=== PATIENT | male | born 1945 | race Caucasian/White ===

== ENCOUNTER 2016-08-04 08:26 | Inpatient (IN) ==
[2016-08-04] MEDS ORDERED: Heparin 1,000 UNITS/500 mL NS 0 ML ONE (08:29)
[2016-08-04] MEDS ORDERED: Vancomycin 1,000 MG in D5% in Water 250 ML IVPB ONE ×2 (09:05→21:00)
[2016-08-04] MEDS ORDERED: Albuterol 2.5 MG/3 ML NEBULIZER IH ONE (09:05)
[2016-08-04] MEDS ORDERED: CeFAZolin Pre 2,000 MG/100 ML 2,000 MG/100 ML BAG IVPB ONE (09:05)
[2016-08-04] MEDS: Ringers Solution, Lactated 1,000 ML IVC SCH ×2 (09:26→14:05)
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
--- NOTE | 2016-08-04 09:40 | History & Physical Report ---
Date of Encounter: 08/04/16 Time of Encounter: 09:25 24 Hour HP Update - Instructions Instructions: If the History and Physical is less than 30 days old and was completed prior to A.M. admission and or procedure and has NOT been updated on calendar day of procedure please complete this update prior to performing procedure. - Update Patient reports changes in Medical Condition: No Changes in assessment/condition: No Changes in Medication: No Preop tests/diagnostics Reviewed: Yes Surgery Remains Indicated: Yes Consent for Planned Operative Procedure(s) Verified: Yes - Pre-Operative Checklist Preoperative Checklist Indicated: Yes Prophylactic Antibiotic Ordered: Yes (Vancomycin due to MRSA risk) Home Medications Include Beta Wiley: No Beta Wiley Taken Today (Day of Surgery): No Beta Wiley Taken Yesterday (Day Prior to Surgery): No Is VTE Prophylaxis Indicated?: Yes
[2016-08-04] MEDS ORDERED: *HR* Midazolam HCl 2 MG/2 ML VIAL ONE (10:11)
[2016-08-04] MEDS ORDERED: Lidocaine -MPF 2% 2 ML VIAL ONE ×2 (10:11→10:16)
[2016-08-04] MEDS ORDERED: *HR* Heparin 5,000 UNIT/ML VIAL ONE (10:16)
[2016-08-04] MEDS ORDERED: *HR* Phenylephrine 10 MG/ML VIAL ONE (10:16)
[2016-08-04] MEDS ORDERED: Lidocaine -MPF 4% 5 ML AMPUL ONE (10:16)
[2016-08-04] MEDS ORDERED: *HR* Succinylcholine 200 MG/10 ML VIAL IVP ONE (10:16)
[2016-08-04] MEDS ORDERED: Water for inj. (sterile) 10 ML IV ONE (10:16)
[2016-08-04] MEDS ORDERED: *HR* Rocuronium Bromide 50 MG/5 ML VIAL ONE (10:16)
[2016-08-04] MEDS ORDERED: *HR* Remifentanil 1 MG VIAL IVP ONE ×2 (10:17)
[2016-08-04] MEDS ORDERED: NiCARdipine 2.5 MG/10 ML Syringe IVPB ONE (10:21)
[2016-08-04] MEDS ORDERED: *HR* FentaNYL (PF) 100 MCG/2 ML VIAL ONE ×3 (10:26→13:11)
--- NOTE | 2016-08-04 10:30 | Anesthesia Procedures ---
Date of Encounter: 08/04/16 Time of Encounter: 10:29 Procedures: Anesthesia - Arterial Line Consent obtained: verbal consent Time out performed: Yes Sedation: Versed (mg): 2 Local Anesthetic: Lidocaine 1% Amount of Anesthetic used (mls): 1 Size (Gauge): 20 Length (inches): 1 3/4 Technique Used: sterile prep, guide wire technique, direct puncture technique Post-Procedure: line taped into place Patient tolerated procedure: well Complications: none Site: Radial L Vitals: see rn note
[2016-08-04] MEDS ORDERED: Vancomycin 1,000 MG VIAL ONE (10:33)
[2016-08-04] MEDS ORDERED: Bupivacaine-MPF 0.25% 10 ML VIAL ONE (10:33)
[2016-08-04] MEDS ORDERED: Heparin 1,000 UNITS/500 mL NS 1,000 ML ONE (10:33)
[2016-08-04] MEDS ORDERED: Esmolol 100 MG/10 ML VIAL IVP ONE (11:01)
[2016-08-04] MEDS ORDERED: Neostigmine Methylsulfate 3 MG/3 ML SYRINGE ONE (13:11)
--- NOTE | 2016-08-04 13:41 | Operative Note ---
Date of procedure: 08/04/16 Pre-op diagnosis: 80-99% Right internal carotid artery stenosis Post-op diagnosis: same Procedure: Right carotid endartectomy with hemashield patch angioplasty. Complications: None Anesthesia: JOSE RAMONA Surgeon: Mat Bach Estimated blood loss (cc): 100 Specimen: Right carotid plaque Condition: stable Disposition: PACU Procedure in Detail: Indications: The patient is a 70 year old male with a history of hyperlipidemia who was found to have an 80-99% right internal carotid artery stenosis. A right carotid endarterectomy was recommended to reduce his risk of stroke. Procedure: The patient was identified in the preoperative area. The risks, benefits, and alternatives of the procedure were discussed and all questions were answered. The patient was then taken to the operating room and placed in supine position on the operating table. After induction of general endotracheal anesthesia, the patient was cleaned and draped in normal sterile fashion. A longitudinal incision was made anterior to the right sternocleidomastoid muscle. Hemostasis was obtained via electrocautery. Through a process of blunt , sharp, and electrocautery dissection, the platysma was traversed. The jugular vein was identified. The facial vein was clamped, divided, tied off with a 2-0 silk suture ligature. The jugular vein was retracted, exposing the carotid bifurcation. Patient received 2000 units of heparin intravenously at this time. Proximal dissection of the common and external carotid arteries were performed circumferentially. Dissection of the internal carotid was performed circumferentially. Vessels loops were passed around the internal and external carotid and an umbilical tape was passed from the common carotid artery. The patient received additional 3000 units of heparin intravenously. After waiting adequate time for it to circulate, the vessels were occluded and a longitudinal arteriotomy was made into the common carotid artery extending into the internal carotid beyond the plaque. Upon release of the internal carotid artery loop, vigorous pulsatile retrograde flow was noted. The backpressure was noted to be adequate, therefore no shunt was placed.. A dental freer was used to perform a standard endarterectomy. Proximal and distal endpoints were inspected and no elevated flaps were noted. Additional heparin was given throughout the procedure to maintain adequate anticoagulation. A Hemashield patch was cut to fit the defect and sutured in place with running 6 -0 Prolene. Prior to completing the closure, each vessel was flushed and then reoccluded. Heparinized saline was infused into the lumen. The patch was completed. Flow was restored in the external carotid artery, followed the common carotid artery, lastly the internal carotid artery was opened. A low resistance arterialized signal was present within the internal carotid artery beyond the patch. Thrombin and Gelfoam were used to aid in hemostasis. Meticulous hemostasis was obtained throughout the wound with electrocautery. Platelet rich and platelet poor plasma were infused into the wounds. The sternocleidomastoid was reapproximated with interrupted 3-0 Vicryl. Platelet rich and platelet poor plasma were infused into the wound. A TLS drain was brought through a separate stab incision and sutured in place with 0 silk suture. The platysma was reapproximated with running 3-0 Vicryl. Local anesthetic was infused in the skin. A 3-0 Monocryl was used to reapproximate the skin. Sterile dressing was applied. The patient was extubated, taken to the recovery room in stable condition.
[2016-08-04] MEDS ORDERED: *HR* HYDROmorphone (PF) 1 MG/ML SYRINGE IVP PRN (13:44)
[2016-08-04] MEDS ORDERED: *HR* Labetalol 100 MG/20 ML MDV IVP PRN (13:44)
[2016-08-04] MEDS ORDERED: Ondansetron 4 MG/2 ML VIAL IVP ONE (13:44)
--- NOTE | 2016-08-04 13:44 | Discharge Summary ---
Date of Encounter: 08/05/16 Time of Encounter: 08:10 - Discharge Diagnosis (1) Carotid stenosis, bilateral Priority: Primary Status: Chronic Comments: The patient is postoperative day #1 after right carotid endarterectomy. He denies pain. He is alert and comfortable without any neurologic deficits. He has no hematoma and his incisionis healing. He will be discharged today. (2) Mixed hyperlipidemia Priority: Secondary Status: Chronic Comments: The patient was counseled regarding atherosclerotic risk factor reduction. - Discharge Medications Prescriptions: HYDROcodone/Acet 5/325 mg [[place] 5-325 mg] 1 tab PO Q4H PRN #20 tablet PRN Reason: postoperative pain Home Medications: Aspirin Enteric Coated [Aspirin EC] 81 mg PO DAILY 08/04/16 [History] Atorvastatin Calcium [Lipitor] 20 mg PO HS 08/04/16 [History] HYDROcodone/Acet 5/325 mg [[place] 5-325 mg] 1 tab PO Q4H PRN #20 tablet 08/05/16 [Rx] Allergies/Adverse Reactions: Allergies acetaminophen [From Tylenol-Codeine] Adverse Reaction (Verified 08/04/16 21:55) Vomiting ciprofloxacin [From Cipro] Adverse Reaction (Verified 08/04/16 09:07) Rash codeine [From Tylenol-Codeine] Adverse Reaction (Verified 08/04/16 21:55) Vomiting Primary care physician: Gavin Tellez MD Procedure(s) Performed: Right carotid endarterectomy Discharging clinician: Mat Bach Anticipated date of discharge: 08/05/16 - Patient Status Disposition: Home, Self-Care Condition: Good Functional capacity at discharge: independent ambulation Overall status at discharge: patient is back to baseline - Discharge Instructions Follow Up With: Mat Bach MD [Partnered Physician] - 09/13/16 2:40 pm Gavin Tellez MD [Primary Care Provider] - () Barbie Leone CNP [Advanced Practice Nurse] - 08/10/16 10:00 am Additional Instructions: MAY REMOVE BANDAGE AND SHOWER ON 08/06/2016. WASH GENTLY PAT WOUND GENTLY TO DRY. APPLY DRY BANDAGE NEEDED. NO DRIVING UNTIL 08/11/16. CALL [phone] WITH QUESTIONS OR CONCERNS. - Diet and Activity Activity: increase activity as tolerated Diet: low fat, low cholesterol - Hospital Course Hospital course: Mr. Arechiga is a 70 year old male with a history of hyperlipidemai and carotid stenosis who was admitted on 08/04/16. He underwent a right carotid endarterectomy. He tolerated the procedure well. On postoperative day #1 he was alert and without complaints. He was neurologically intact. He was discharged on postoperative day #1 without complications. - Time Spent with Patient Total time spent providing and/or coordinating discharge services: Exam Vital Signs, Last 4 Hours Pulse Resp BP Pulse Ox 08/04/16 10:02 70 16 167/69 97 General: Present: Conversant, No Apparent Distress HEENT: Present: Pupils equal Neck: Present: Other (incision clean, dry and intact without erythema or drainage). Absent: Tracheal deviation Cardiac: Present: Reg Rate and Rhythm, Normal S1 and S2 Lungs: Present: Normal Breath Sounds, No Wheeze, Rales, Rhonchi Neuro: Present: Alert and responsive, No focal deficits noted, Motor nerves grossly intact, Sensory nerves grossly intact Abdomen: Present: Soft Vascular: Present: Normal capillary refill. Absent: Cyanosis, Edema Skin: Present: No rashes noted on visualized skin
[2016-08-04] MEDS: *HR* Morphine 2 MG/ML SYRINGE IVP PRN ×3 (14:02→15:16)
--- NOTE | 2016-08-04 14:18 | Anesthesia Evaluation Post Op ---
Date of Encounter: 08/04/16 Time of Encounter: 14:15 - Vital Signs Vital Signs: Vital Signs/O2 Sat, Most Current Temp Pulse Resp BP Pulse Ox 98.5 F 70 16 167/69 97 08/04/16 08:56 08/04/16 10:02 08/04/16 10:02 08/04/16 10:02 08/04/16 10:02 - Lungs Lungs: Clear Ascult./Percussion - Airway Airway: Non-obstructed - Cardiovascular Regular Rate - Mental Status Mental Status: Alert & Oriented, Answers Appropriately - Pain Pain Scale: 1 Pain Scale used: Numeric (1 - 10) - Nausea Vomiting Nausea Vomiting: Not Present - Hydration Hydration: NPO, Burt catheter - Discharge PostOp Status: Transfer Patient to floor
[2016-08-04] MEDS ORDERED: *HR* Metoprolol 5 MG/5 ML VIAL IVP ONE ×2 (14:45→14:48)
--- NOTE | 2016-08-04 14:45 | Anesthesia Evaluation Post Op ---
Date of Encounter: 08/04/16 Time of Encounter: 14:45 - Vital Signs Vital Signs: Vital Signs/O2 Sat/Glucose, Most Current Temp Pulse Resp BP Pulse Ox 08/04/16 14:36 97.8 F 80 16 177/78 99 08/04/16 14:26 80 16 162/74 99 08/04/16 14:16 69 16 182/87 99 08/04/16 14:06 97.8 F 64 16 185/83 98 08/04/16 13:56 65 16 181/87 99 08/04/16 13:46 84 16 165/93 100 08/04/16 13:36 97.1 F L 88 14 196/93 100 - Lungs Lungs: Clear Ascult./Percussion - Airway Airway: Non-obstructed - Cardiovascular Regular Rate - Mental Status Mental Status: Alert & Oriented, Answers Appropriately - Pain Pain Scale: 3 - Nausea Vomiting Nausea Vomiting: Not Present - Hydration Hydration: NPO, Burt catheter - Discharge PostOp Status: Transfer Patient to floor
[2016-08-04] MEDS ORDERED: Ondansetron 4 MG/2 ML VIAL IVP PRN (15:35)
[2016-08-04] MEDS ORDERED: *HR* Labetalol 20 MG/4 ML SYRINGE IVP PRN (15:35)
[2016-08-04] MEDS ORDERED: Naloxone 0.4 MG/ML INJ IVP PRN (15:35)
[2016-08-04] MEDS ORDERED: *HR* Morphine 2 MG/ML SYRINGE IVP PRN (15:35)
[2016-08-04] MEDS ORDERED: Acetaminophen 325 MG TABLET PO PRN (15:35)
[2016-08-04] MEDS ORDERED: *HR* OxyCODONE Immed Rel 5 MG TABLET PO PRN (15:35)
[2016-08-04] MEDS ORDERED: *HR* HYDROcodone/Acet 5/325 mg TABLET PO PRN (15:35)
[2016-08-04] MEDS: *HR* Metoprolol 5 MG/5 ML VIAL IVP SCH (16:15)
[2016-08-04 16:43] LABS: Basophils % 0.3 %; Eosinophils % 0.1 %; Hematocrit 40.4 % (37.5-50.1); Hemoglobin 13.4 g/dL (12.9-16.9); Immature Granulocytes % 0.4 % (0-4); Lymphocytes # 1.7 K/mcL (0.6-4.6); Mean Corpuscular HGB Conc 33.2 g/dL (31.6-35.5); Mean Corpuscular Hemoglobin 29.1 pg (28.0-33.3); Mean Corpuscular Volume 87.6 fL (83.0-100.0); Mean Platelet Volume 9.4 fL (9.4-12.4); Monocytes # 0.2 K/mcL (0.0-1.3); Monocytes % 1.3 %; Neutrophils # 12.3 K/mcL (1.6-8.9); Platelet Count 304 K/mcL (140-400); Red Blood Count 4.61 M/mcL (4.19-5.50); Red Cell Distribution Width 12.8 % (11.5-14.5); Segmented Neutrophils % 85.9 %
[2016-08-04] MEDS: ceFAZolin 2,000 MG in D5% in Water 100 ML IVPB SCH (19:18)
[2016-08-05] MEDS: *HR* Metoprolol 5 MG/5 ML VIAL IVP SCH ×2 (00:01→06:30)
[2016-08-05] MEDS: ceFAZolin 2,000 MG in D5% in Water 100 ML IVPB SCH (01:15)
[2016-08-05] MEDS ORDERED: *HR* Heparin 5,000 UNIT/ML VIAL SQ SCH ×2 (06:00)
[2016-08-05 08:15] VITALS: BP 140/67
[2016-08-05] MEDS ORDERED: Aspirin Enteric Coated 81 MG Tablet PO SCH (09:00)
== END 2016-08-05 11:44 | disposition home or self-care (01) | DRG 39 ==
LOC: SAMDAY 08:26 → 2NNU 16:07
PROVIDERS: ADMIT Surgery; ATTEND Surgery

== ENCOUNTER 2018-01-14 06:16 | Inpatient (IN) ==
[2018-01-14] MEDS ORDERED: Levofloxacin 500 MG/100 ML 500 MG/100 ML BAG IVPB ONE (06:31)
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
[2018-01-14] MEDS: Ringers Solution, Lactated 1,000 ML IVC SCH ×2 (06:40→11:50)
[2018-01-14] MEDS ORDERED: Dexamethasone 4 MG/ML VIAL ONE (07:04)
[2018-01-14] MEDS ORDERED: Lidocaine -MPF 4% 5 ML AMPUL ONE (07:04)
[2018-01-14] MEDS ORDERED: *HR* Rocuronium Bromide 50 MG/5 ML VIAL ONE ×2 (07:04→10:00)
[2018-01-14] MEDS ORDERED: *HR* Succinylcholine 200 MG/10 ML VIAL IVP ONE (07:04)
[2018-01-14] MEDS ORDERED: *HR* Propofol 200 MG/20 ML VIAL IVP ONE (07:04)
[2018-01-14] MEDS ORDERED: *HR* FentaNYL (PF) 100 MCG/2 ML VIAL ONE ×2 (07:04→08:46)
[2018-01-14] MEDS ORDERED: Ondansetron 4 MG/2 ML VIAL ONE (07:04)
[2018-01-14] MEDS ORDERED: Lidocaine -MPF 2% 2 ML VIAL ONE (07:04)
[2018-01-14] MEDS ORDERED: Neostigmine Methylsulfate 3 MG/3 ML SYRINGE ONE (07:05)
[2018-01-14] MEDS ORDERED: Water for inj. (sterile) 10 ML IV ONE (07:05)
--- NOTE | 2018-01-14 07:11 | History & Physical Report ---
Date of Encounter: 01/14/18 Time of Encounter: 07:11 24 Hour HP Update - Instructions Instructions: If the History and Physical is less than 30 days old and was completed prior to A.M. admission and or procedure and has NOT been updated on calendar day of procedure please complete this update prior to performing procedure. - Update Patient reports changes in Medical Condition: No Changes in examination, assessment, or condition: No Changes in Medication: No Preop tests/diagnostics Reviewed: Yes Surgery Remains Indicated: Yes Consent for Planned Operative Procedure(s) Verified: Yes - Pre-Operative Checklist Preoperative Checklist Indicated: Yes Prophylactic Antibiotic Ordered: Yes Is VTE Prophylaxis Indicated?: Yes
[2018-01-14] MEDS ORDERED: CeFAZolin Syr 2,000MG/20 ML 2,000 MG/20 ML SYRINGE IVPB ONE (07:19)
[2018-01-14] MEDS ORDERED: Ondansetron 4 MG/2 ML VIAL IVP ONE (07:33)
[2018-01-14] MEDS ORDERED: *HR* Labetalol 20 MG/4 ML SYRINGE IVP PRN (07:33)
[2018-01-14] MEDS ORDERED: *HR* Promethazine 25 MG/ML VIAL IVP PRN (07:33)
[2018-01-14] MEDS ORDERED: Naloxone 0.4 MG/ML INJ IVP PRN ×3 (07:33→12:41)
[2018-01-14] MEDS ORDERED: *HR* HYDROmorphone 2 MG TABLET PO PRN (07:33)
[2018-01-14] MEDS ORDERED: Albuterol 2.5 MG/3 ML NEBULIZER IH ONE (07:33)
[2018-01-14] MEDS ORDERED: Bupivacaine/EPI 1:200k 0.25%PF 30 ML VIAL ONE (07:44)
[2018-01-14] MEDS ORDERED: Ringers Solution, Lactated 1,000 ML IVC SCH (07:45)
[2018-01-14] MEDS ORDERED: *HR* PHENYLEPHRINE 1,000 MCG/10 ML SYRINGE IVP ONE (08:28)
[2018-01-14] MEDS ORDERED: NiCARdipine 2.5 MG/10 ML Syringe IVPB ONE (08:52)
[2018-01-14] MEDS ORDERED: *HR* Metoprolol 5 MG/5 ML VIAL IVP ONE (08:59)
[2018-01-14] MEDS ORDERED: Celecoxib 100 MG CAPSULE PO SCH (09:00)
[2018-01-14] MEDS ORDERED: Acetaminophen 325 MG TABLET PO PRN ×2 (10:40→12:41)
[2018-01-14] MEDS ORDERED: Ibuprofen 400 MG TABLET PO PRN ×2 (10:40→12:41)
[2018-01-14] MEDS ORDERED: OXYCODONE Oral CONC 10 MG/0.5 ML ORAL.SYG SL PRN (10:40)
[2018-01-14] MEDS ORDERED: *HR* HYDROcodone/Acet 5/325 mg TABLET PO PRN ×2 (10:40→12:41)
[2018-01-14] MEDS ORDERED: Ondansetron 4 MG/2 ML VIAL IVP PRN ×2 (10:40→12:41)
[2018-01-14] MEDS ORDERED: *HR* OxyCODONE Immed Rel 5 MG TABLET PO PRN (10:40)
[2018-01-14] MEDS ORDERED: 0.9 % Sodium Chloride 1,000 ML IVC SCH (10:45)
--- NOTE | 2018-01-14 10:45 | Operative Note ---
Date of procedure: 01/14/18 Pre-op diagnosis: right ureteral urothelial carcinoma Post-op diagnosis: same Procedure: Right hand-assisted laparoscopic nephroureterectomy, transurethral incision of right ureteral orifice Anesthesia: CHAD Surgeon: Giuseppe Ruiz Was there an automotive service assistant present: Yes Wood Stock Blank Handler: Emily Flores Estimated blood loss (cc): 50 Specimen: Right kidney and ureter Condition: stable Disposition: PACU Procedure in Detail: All pertinent risks benefits and alternatives were discussed with the patient, and daughter in holding. They agreed with reviewed the consent and wanted to proceed. Patient was taken the operating room. He was placed in lithotomy position after being given general anesthesia. I then inserted the bipolar resectoscope into the patient's bladder. I proceeded to incise around the right ureteral orifice. This back to fat. I then placed 18-Turkish Coude catheter into the patient's bladder. Patient was then placed in modified lateral position with right flank up. I then placed my hand port incision in the right lower quadrant of the abdomen using a Hoff-type incision. Access to the peritoneum was obtained. I then placed 2 12 mm trochars in standard fashion cranial to the hand port. With my automotive service assistant helping with the camera I was able to place instruments into the abdomen. Patient had a small amount of adhesions on the right lateral wall which were easily taken down. At this point I then was able to identify and palpate the right kidney. I was able to reflect the colon medially. Identify the ureter and carried this dissection cranially. I was able to place the echelon stapler across the hilum. I then proceeded to dissect more of the kidney free leaving some cranial attachments. I then proceeded to carry my ureteral dissection caudally. I was able to free the ureter. I was able to identify the midureteral tumor and place a clip distal to this. I then was able to carry this ureteral dissection all the way down to the bladder which then freed the ureter from the bladder. Specimen was then removed from the patient's abdomen. I then placed FloSeal in the renal hilar bed. No other oozing was noted. All lap count and needle counts were correct. I then closed the fascial incisions using running #1 PDS. Subcutaneous any states she was closed using running 3-0 Vicryl. Skin incisions were closed using 4-0 Monocryl. Wood Stock Blank Handler help close the trocar incisions using 4 Monocryl. Dermabond was placed over top. Patient was taken to PACU in stable condition.
[2018-01-14] MEDS: *HR* Morphine 2 MG/ML SYRINGE IVP PRN ×3 (10:52→12:05)
[2018-01-14] MEDS: *HR* Meperidine 25 MG/ML SYRINGE IVP PRN ×2 (11:02→11:17)
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
[2018-01-14] MEDS: OXYCODONE Oral CONC 10 MG/0.5 ML ORAL.SYG SL PRN ×2 (12:51→17:17)
[2018-01-14] MEDS ORDERED: Albuterol 2.5 MG/3 ML NEBULIZER IH PRN (13:00)
[2018-01-14] MEDS: 0.9 % Sodium Chloride 1,000 ML IVC SCH ×2 (13:15→23:15)
[2018-01-14] MEDS ORDERED: amLODIPine 5 MG TABLET PO SCH (13:30)
[2018-01-14] MEDS: *HR* OxyCODONE Immed Rel 5 MG TABLET PO PRN ×2 (14:14→20:07)
--- NOTE | 2018-01-14 17:10 | Anesthesia Evaluation Post Op ---
Date of Encounter: 01/14/18 Time of Encounter: 12:10 Notes: Patient's vital signs have been reviewed. Patient is stable postoperatively and has adequately recovered from anesthesia. Patient is determined to have stable airway patency and respiratory function including respiratory rate and oxygen saturation. Patient has a stable heart rate, blood pressure and adequate hydration. Patients mental status is acceptable. Patients temperature is appropriate. Pain and nausea are adequately controlled. - Discharge PostOp Status: Transfer Patient to floor
[2018-01-15] MEDS ORDERED: Ondansetron 4 MG/2 ML VIAL IVP PRN ×2 (00:16→07:43)
[2018-01-15] MEDS: *HR* OxyCODONE Immed Rel 5 MG TABLET PO PRN ×4 (02:01→21:14)
[2018-01-15 04:58] LABS: Basophils % 0.1 %; Eosinophils % 0.1 %; Hematocrit 33.4 % (37.5-50.1); Immature Granulocytes % 0.5 % (0-4); Lymphocytes # 2.2 K/mcL (0.6-4.6); Lymphocytes % 14.3 %; Mean Corpuscular HGB Conc 32.9 g/dL (31.6-35.5); Mean Corpuscular Hemoglobin 29.2 pg (28.0-33.3); Mean Corpuscular Volume 88.6 fL (83.0-100.0); Mean Platelet Volume 9.7 fL (9.4-12.4); Monocytes # 2.5 K/mcL (0.0-1.3); Monocytes % 15.9 %; Neutrophils # 10.8 K/mcL (1.6-8.9); Platelet Count 304 K/mcL (140-400); Red Blood Count 3.77 M/mcL (4.19-5.50); Red Cell Distribution Width 13.5 % (11.5-14.5); Segmented Neutrophils % 69.1 %
[2018-01-15 05:20] LABS: Chol/HDL Ratio 3.2 (0-4.9)
[2018-01-15 05:21] LABS: Potassium 4.6 mEq/L (3.5-5.1)
--- NOTE | 2018-01-15 06:57 | Urology Progress Note ---
Date of Encounter: 01/15/18 Time of Encounter: 06:55 - Assessment and Plan (1) Malignant tumor of right ureter Current Visit: Yes Status: Acute Assessment and plan: Status post laparoscopic nephroureterectomy. Patient doing well. Continue with clear liquid diet. Up and ambulate. Incentive spirometer. (2) Elevated serum creatinine Current Visit: Yes Status: Acute Assessment and plan: Expected increase in serum creatinine. We will continue to observe with daily chemistries. (3) HTN (hypertension) Current Visit: Yes Status: Acute Assessment and plan: Per hospitalist consultation. Appreciate help in management of care Qualifiers: Hypertension type: unspecified Qualified Code(s): I10 - Essential (primary ) hypertension Progress Note Narrative: Patient postoperative day 1 from right hand-assisted laparoscopic nephroureterectomy. Patient was up and out of bed last night. He feels good this morning. Good urine output last night. Tolerating sips of clears. No nausea. Patient has been having some epigastric discomfort which she attributes to gastritis. Objective Initial Vital Signs Temp Pulse Resp BP Pulse Ox 98.1 F 66 18 193/84 99 01/14/18 06:37 01/14/18 06:37 01/14/18 06:37 01/14/18 06:37 01/14/18 06:37 - General physical appearance Present: well developed, well nourished - Abdomen Present: soft, tender (Incisions intact) - Labs 01/15/18 04:01 01/15/18 04:01 Diabetes panel 01/15/18 01/15/18 Range/Units 04:01 04:01 Sodium 133 L (136-145) mEq/L Potassium 4.6 (3.5-5.1) mEq/L Chloride 102 (98-107) mEq/L Carbon Dioxide 22 L (23-29) mEq/L BUN 23 (8-23) mg/dL Creatinine 1.63 H (0.70-1.30) mg/dL Glucose 138 H (70-105) mg/dL Calcium 8.0 L (8.6-10.3) mg/dL Triglycerides 67 (< 150) mg/dL HDL Cholesterol 48 (40-59) mg/dL Calcium panel 01/15/18 Range/Units 04:01 Calcium 8.0 L (8.6-10.3) mg/dL Pituitary panel 01/15/18 Range/Units 04:01 Sodium 133 L (136-145) mEq/L Potassium 4.6 (3.5-5.1) mEq/L Chloride 102 (98-107) mEq/L Carbon Dioxide 22 L (23-29) mEq/L BUN 23 (8-23) mg/dL Creatinine 1.63 H (0.70-1.30) mg/dL Glucose 138 H (70-105) mg/dL Calcium 8.0 L (8.6-10.3) mg/dL Adrenal panel 01/15/18 Range/Units 04:01 Sodium 133 L (136-145) mEq/L Potassium 4.6 (3.5-5.1) mEq/L Chloride 102 (98-107) mEq/L Carbon Dioxide 22 L (23-29) mEq/L BUN 23 (8-23) mg/dL Creatinine 1.63 H (0.70-1.30) mg/dL Glucose 138 H (70-105) mg/dL Calcium 8.0 L (8.6-10.3) mg/dL - VTE Documentation of Mechanical Device: Intermittent pneumatic compression device Consult Discharge Plan - Plan Referrals: Giuseppe Ruiz MD [Partnered Physician] - Barbie Leone CNP [Primary Care Provider] -
[2018-01-15] MEDS: 0.9 % Sodium Chloride 1,000 ML IVC SCH (08:17)
--- NOTE | 2018-01-15 18:27 | Internal Med Progress Note ---
Hospitalist Progress Note - Encounter Date of Encounter: 01/15/18 Time of Encounter: 11:00 - Subjective Interval History: Patient's blood pressure is controlled this morning. Patient with no acute events overnight and has no issues or complaints this morning. - Exam Vitals: Temp Pulse Resp BP Pulse Ox 98.9 F 71 18 123/67 93 01/15/18 16:04 01/15/18 16:04 01/15/18 16:04 01/15/18 16:04 01/15/18 16:04 Exam: Gen.: Nonacute distress, alert and oriented 3 ENT: Mucosal membranes moist Respiratory: Lungs are clear to auscultation bilaterally without any wheezing rhonchi or rales Cardiovascular: Normal S1 and S2 regular rate rhythm no murmurs rubs or gallops Abdomen: Soft, nontender and nondistended with positive bowel sounds Extremities: No lower extremity edema Skin: Normal color - Assessment and Plan (1) HTN (hypertension) Current Visit: Yes Status: Acute Assessment and Plan: Patient has blood pressure within normal limits and not requiring IV as needed medications. Continue to monitor. (2) Elevated serum creatinine Current Visit: Yes Status: Acute Assessment and Plan: Will continue IV fluids for elevated creatinine and monitor (3) Malignant tumor of right ureter Current Visit: Yes Status: Acute Assessment and Plan: Status post laparoscopic nephroureterectomy Urology managing - Time Spent with Patient Total time spent is greater than 50% in coordination of care (as documented) at patient's floor/unit and/or counseling patient: Internal Medicine: Result - Labs CBC & Chem 7: 01/15/18 04:01 01/15/18 04:01 Labs: Short CBC 01/15/18 Range/Units 04:01 WBC 15.7 H (4.3-11.1) K/mcL Hgb 11.0 L (12.9-16.9) g/dL Hct 33.4 L (37.5-50.1) % Plt Count 304 (140-400) K/mcL Neutrophils # 10.8 H (1.6-8.9) K/mcL BMP 01/15/18 04:01 Sodium 133 L Potassium 4.6 Chloride 102 Carbon Dioxide 22 L BUN 23 Creatinine 1.63 H Glucose 138 H Calcium 8.0 L - VTE Documentation of Mechanical Device: Intermittent pneumatic compression device Consult Discharge Plan - Plan Referrals: Giuseppe Ruiz MD [Partnered Physician] - 01/24/18 8:15 am Barbie Leone CNP [Primary Care Provider] - 01/22/18 9:00 am (1) HTN (hypertension) Qualifiers: Hypertension type: unspecified Qualified Code(s): I10 - Essential (primary) hypertension
[2018-01-16] MEDS: *HR* OxyCODONE Immed Rel 5 MG TABLET PO PRN ×2 (03:27→20:07)
[2018-01-16] MEDS: 0.9 % Sodium Chloride 1,000 ML IVC SCH ×2 (03:49→13:55)
--- NOTE | 2018-01-16 06:24 | Urology Progress Note ---
Date of Encounter: 01/16/18 Time of Encounter: 06:22 - Assessment and Plan (1) Malignant tumor of right ureter Current Visit: Yes Status: Acute Assessment and plan: Status post right nephroureterectomy. Patient doing well. We will continue with clear liquid diet until flatus. Continue with incentive from under. Sequential compression devices while in bed. (2) Elevated serum creatinine Current Visit: Yes Status: Acute Assessment and plan: Labs pending (3) HTN (hypertension) Current Visit: Yes Status: Acute Assessment and plan: Further hospitalist team. It appears that patient's blood pressure has normalized off medication. We will plan on transferring the patient to regular floor. Qualifiers: Hypertension type: unspecified Qualified Code(s): I10 - Essential (primary ) hypertension Progress Note Narrative: Patient is postoperative day #2 status post right hand-assisted laparoscopic nephroureterectomy. Patient was up and ambulating multiple times yesterday. He is tolerating clear liquid diet. Still without flatus. Objective Initial Vital Signs Temp Pulse Resp BP Pulse Ox 98.1 F 66 18 193/84 99 01/14/18 06:37 01/14/18 06:37 01/14/18 06:37 01/14/18 06:37 01/14/18 06:37 - General physical appearance Present: well developed, well nourished - Abdomen Present: soft, tender (Very mild distention) - Genitourinary Present: other (Clear urine in the catheter tubing) - Labs 01/15/18 04:01 01/15/18 04:01 - VTE Documentation of Mechanical Device: Intermittent pneumatic compression device Consult Discharge Plan - Plan Referrals: Giuseppe Ruiz MD [Partnered Physician] - 01/24/18 8:15 am Barbie Leone CNP [Primary Care Provider] - 01/22/18 9:00 am
[2018-01-16 06:56] LABS: Calcium 7.9 mg/dL (8.6-10.3); Potassium 4.2 mEq/L (3.5-5.1)
[2018-01-16] MEDS ORDERED: Bisacodyl 10 MG RECTAL SUPPOSITORY RC ONE (07:00)
--- NOTE | 2018-01-16 18:49 | Internal Med Progress Note ---
Hospitalist Progress Note - Encounter Date of Encounter: 01/16/18 Time of Encounter: 11:00 - Subjective Interval History: Patient's blood pressures continues to be controlled. Patient's acute renal failure improving as well IV fluids. - Exam Vitals: Temp Pulse Resp BP Pulse Ox 98.9 F 81 16 150/79 97 01/16/18 16:46 01/16/18 16:46 01/16/18 16:46 01/16/18 16:46 01/16/18 16:46 Exam: Gen.: Nonacute distress, alert and oriented 3 ENT: Mucosal membranes moist Respiratory: Lungs are clear to auscultation bilaterally without any wheezing rhonchi or rales Cardiovascular: Normal S1 and S2 regular rate rhythm no murmurs rubs or gallops Abdomen: Soft, nontender and nondistended with positive bowel sounds Extremities: No lower extremity edema Skin: Normal color - Assessment and Plan (1) HTN (hypertension) Current Visit: Yes Status: Acute Assessment and Plan: Patient's blood pressures continue to be within normal limits and not requiring IV as needed medications. Continue to monitor. (2) Elevated serum creatinine Current Visit: Yes Status: Acute Assessment and Plan: Renal function improving with IV fluid SCr 1.63->1.60 Continue current management and avoiding nephrotoxic medications (3) Malignant tumor of right ureter Current Visit: Yes Status: Acute Assessment and Plan: Status post laparoscopic nephroureterectomy Urology managing - Time Spent with Patient Total time spent is greater than 50% in coordination of care (as documented) at patient's floor/unit and/or counseling patient: Internal Medicine: Result - Labs CBC & Chem 7: 01/15/18 04:01 01/16/18 06:13 Labs: BMP 01/16/18 06:13 Sodium 134 L Potassium 4.2 Chloride 106 Carbon Dioxide 22 L BUN 20 Creatinine 1.60 H Glucose 103 Calcium 7.9 L - VTE Documentation of Mechanical Device: Intermittent pneumatic compression device Consult Discharge Plan - Plan Referrals: Giuseppe Ruiz MD [Partnered Physician] - 01/24/18 8:15 am Barbie Leone CNP [Primary Care Provider] - 01/22/18 9:00 am (1) HTN (hypertension) Qualifiers: Hypertension type: unspecified Qualified Code(s): I10 - Essential (primary) hypertension
[2018-01-16] MEDS ORDERED: Sennosides 8.6 MG TABLET PO SCH (21:00)
[2018-01-17] MEDS ORDERED: Ondansetron 4 MG/2 ML VIAL IVP PRN ×2 (01:34)
[2018-01-17] MEDS ORDERED: Acetaminophen 325 MG TABLET PO PRN (01:34)
[2018-01-17] MEDS ORDERED: *HR* HYDROcodone/Acet 5/325 mg TABLET PO PRN (01:34)
[2018-01-17] MEDS ORDERED: Albuterol 2.5 MG/3 ML NEBULIZER IH PRN (01:34)
[2018-01-17] MEDS ORDERED: *HR* OxyCODONE Immed Rel 5 MG TABLET PO PRN (01:34)
[2018-01-17] MEDS ORDERED: Naloxone 0.4 MG/ML INJ IVP PRN (01:34)
--- NOTE | 2018-01-17 06:56 | Discharge Summary ---
Date of Encounter: 01/17/18 Time of Encounter: 06:54 - Discharge Diagnosis (1) Malignant tumor of right ureter Priority: Primary Status: Acute (2) Elevated serum creatinine Priority: Secondary Status: Acute (3) HTN (hypertension) Priority: Secondary Status: Acute Qualifiers: Hypertension type: unspecified Qualified Code(s): I10 - Essential (primary ) hypertension - Hospital Course Hospital course: Mr. Arechiga is a 72 year old male who underwent right hand-assisted laparoscopic nephroureterectomy. Patient did well he was ambulating early. He tolerated diet well. Bowel function returned on postoperative day 2. No fevers. Patient's serum creatinine elevated to 1.63 with an stabilized at 1.6. Good urine output throughout entire course. Time spent discussing smoking cessation with patient: 3 to 10 minutes - Time Spent with Patient Total time spent providing and/or coordinating discharge services: Less than 30 minutes Procedures and tests throughout hospitalization: Right nephroureterectomy on 01/14/2018 Labs on day of discharge: Labs from last 24 hours 01/16/18 06:13 Sodium 134 L Potassium 4.2 Chloride 106 Carbon Dioxide 22 L BUN 20 Creatinine 1.60 H Est GFR ( Amer) 52 L Est GFR (Non-Af Amer) 43 L BUN/Creatinine Ratio 13 Glucose 103 Calculated Osmolality 281 Calcium 7.9 L - Discharge Medications Prescriptions: HYDROcodone/Acet 5/325 mg [[place] 5-325 mg] 1 tab PO Q6HR PRN 3 Days #12 tablet PRN Reason: Pain Home Medications: HYDROcodone/Acet 5/325 mg [[place] 5-325 mg] 1 tab PO Q6HR PRN 3 Days #12 tablet 01/17/18 [Rx] Allergies/Adverse Reactions: 3 Allergy/AdvReac Type Severity Reaction Status Date / Time ciprofloxacin [From Cipro] AdvReac Rash Verified 01/14/18 07:10 codeine AdvReac Vomiting Verified 01/14/18 07:10 [From Tylenol-Codeine] Date of admission: 01/14/18 12:50 Primary care physician: Barbie Leone CNP Consults: 01/14/18 12:41 Consult to Hospitalist [CONS] Routine Consulting Provider: Hospitalist Jamee Reason for Consult: htn control Call Completed: Yes Discharging clinician: Giuseppe Ruiz Anticipated date of discharge: 01/17/18 Exam Initial Vital Signs Temp Pulse Resp BP Pulse Ox 98.1 F 66 18 193/84 99 01/14/18 06:37 01/14/18 06:37 01/14/18 06:37 01/14/18 06:37 01/14/18 06:37 - General physical appearance Present: well developed, well nourished - Eyes Present: PERRL - Neck Present: no masses - Cardiovascular Cardiovascular exam IM: RRR - Abdomen Abdomen: Present: soft (Incisions healing well. No drainage. No erythema.) - Patient Status Disposition: Home, Self-Care Condition: Good Functional capacity at discharge: independent ambulation Overall status at discharge: patient is progressing back to baseline - Discharge Instructions Follow Up With: Giuseppe Ruiz MD [Partnered Physician] - 01/24/18 8:15 am Barbie Leone CNP [Primary Care Provider] - 01/22/18 9:00 am Additional Instructions: Okay for patient to shower tonight. No baths for 2 weeks. Call with any fever greater than 101.5. No lifting more than 15 pounds for 4 weeks. Patient's catheter to leg bag and or large overnight bag. - Diet and Activity Activity: increase activity as tolerated Diet: advance to your usual diet - VTE Documentation of Mechanical Device: Intermittent pneumatic compression device
[2018-01-17 08:13] VITALS: BP 158/80
[2018-01-17] MEDS ORDERED: Sennosides 8.6 MG TABLET PO SCH (09:00)
--- NOTE | 2018-01-17 09:24 | Internal Med Progress Note ---
Hospitalist Progress Note - Encounter Date of Encounter: 01/17/18 - Exam Vitals: Temp Pulse Resp BP Pulse Ox 98.0 F 74 14 158/80 97 01/17/18 08:12 01/17/18 08:12 01/17/18 08:12 01/17/18 08:12 01/17/18 08:12 - Assessment and Plan (1) HTN (hypertension) Current Visit: Yes Status: Acute (2) Elevated serum creatinine Current Visit: Yes Status: Acute (3) Malignant tumor of right ureter Current Visit: Yes Status: Acute - Time Spent with Patient Total time spent is greater than 50% in coordination of care (as documented) at patient's floor/unit and/or counseling patient: Internal Medicine: Result - Labs CBC & Chem 7: 01/15/18 04:01 01/16/18 06:13 - VTE Documentation of Mechanical Device: Intermittent pneumatic compression device Consult Discharge Plan - Plan Additional Instructions: Okay for patient to shower tonight. No baths for 2 weeks. Call with any fever greater than 101.5. No lifting more than 15 pounds for 4 weeks. Patient's catheter to leg bag and or large overnight bag. Referrals: Giuseppe Ruiz MD [Partnered Physician] - 01/24/18 8:15 am Barbie Leone CNP [Primary Care Provider] - 01/22/18 9:00 am Prescriptions: HYDROcodone/Acet 5/325 mg [[place] 5-325 mg] 1 tab PO Q6HR PRN 3 Days #12 tablet PRN Reason: Pain (1) HTN (hypertension) Qualifiers: Hypertension type: unspecified Qualified Code(s): I10 - Essential (primary) hypertension
== END 2018-01-17 10:02 | disposition home or self-care (01) | DRG 657 ==
LOC: SAMDAY 06:16 → SUATTDRO 12:50 → 2NNU 12:50 → 3ANU 01-16 22:44
PROVIDERS: ADMIT Urology; ATTEND Hospitalist

== ENCOUNTER 2021-08-15 17:38 | Inpatient (IN) ==
[2021-08-15] MEDS ORDERED: Aspirin 81 MG TAB.CHEW PO ONE ×2 (17:48→17:51)
[2021-08-15] MEDS ORDERED: *HR* Ticagrelor 90 MG TABLET PO ONE ×2 (17:48→17:51)
[2021-08-15] MEDS ORDERED: *HR* Heparin 5,000 UNIT/ML VIAL ONE (17:48)
[2021-08-15] MEDS ORDERED: *HR* Ticagrelor 90 MG TABLET ONE (17:48)
[2021-08-15] MEDS ORDERED: Aspirin 81 MG TAB.CHEW ONE (17:48)
[2021-08-15] MEDS ORDERED: 0.9 % Sodium Chloride 1,000 ML ONE ×4 (17:49→19:58)
[2021-08-15] MEDS ORDERED: *HR* Heparin 5,000 UNIT/ML VIAL IVP ONE (17:51)
[2021-08-15] MEDS ORDERED: Morphine Sulfate 2 MG/ML SYRINGE IVP STA (17:58)
[2021-08-15] MEDS ORDERED: ISOVUE-370 200 ML INFUS..BTL ONE (18:03)
[2021-08-15] MEDS ORDERED: Heparin 1,000 UNITS/500 mL 500 ML ONE (18:03)
[2021-08-15] MEDS ORDERED: *HR* Heparin 10,000 UNIT/10 ML VIAL ONE (18:03)
[2021-08-15] MEDS ORDERED: Nitroglycerin 1,000 MCG/5 ML VIAL IV ONE (18:03)
[2021-08-15 18:05] LABS: Basophils # 0.1 K/mcL (0.0-0.2); Basophils % 0.3 %; Eosinophils # 0.1 K/mcL (0.0-0.6); Eosinophils % 0.3 %; Hematocrit 37.8 % (37.5-50.1); Hemoglobin 12.5 g/dL (12.9-16.9); Immature Granulocytes % 0.4 % (0-4); Lymphocytes # 1.7 K/mcL (0.6-4.6); Lymphocytes % 11.3 %; Mean Corpuscular HGB Conc 33.1 g/dL (31.6-35.5); Mean Corpuscular Hemoglobin 29.6 pg (28.0-33.3); Mean Corpuscular Volume 89.6 fL (83.0-100.0); Mean Platelet Volume 9.7 fL (9.4-12.4); Monocytes # 1.1 K/mcL (0.0-1.3); Monocytes % 7.5 %; Platelet Count 281 K/mcL (140-400); Red Blood Count 4.22 M/mcL (4.19-5.50); Red Cell Distribution Width 13.2 % (11.5-14.5); Segmented Neutrophils % 80.2 %
[2021-08-15] MEDS ORDERED: *HR* FentaNYL (PF) 100 MCG/2 ML VIAL ONE (18:10)
[2021-08-15] MEDS ORDERED: *HR* Midazolam HCl 2 MG/2 ML VIAL ONE (18:10)
[2021-08-15] MEDS ORDERED: Tirofiban 12.5 MG/250ML 12.5 MG/250 ML BAG ONE (18:11)
[2021-08-15 18:20] LABS: INR 1.1; Prothrombin Time 12.2 Seconds (9.4-12.1)
[2021-08-15 18:22] LABS: Activated Partial Thrombo Time 31.7 Seconds (26.0-36.0)
[2021-08-15 18:24] LABS: Calcium 9.2 mg/dL (8.6-10.3); Chol/HDL Ratio 4.3 (0-4.9); Magnesium 1.8 mg/dL (1.6-2.6)
[2021-08-15 18:31] LABS: Troponin I 0.13 ng/mL (< 0.04)
[2021-08-15] MEDS ORDERED: Perflutren Lipid Microsphere 1.3 ML in 0.9 % Sodium Chloride 8.7 ML IVP PRN (19:02)
[2021-08-15] MEDS ORDERED: Tirofiban 12.5 MG/250ML 12.5 MG/250 ML BAG IVC SCH (19:15)
[2021-08-15] MEDS: *HR* Ticagrelor 90 MG TABLET PO SCH (20:35)
[2021-08-16 06:11] LABS: Basophils % 0.2 %; Eosinophils % 0.2 %; Hematocrit 35.2 % (37.5-50.1); Hemoglobin 11.4 g/dL (12.9-16.9); Immature Granulocytes % 0.3 % (0-4); Lymphocytes # 2.3 K/mcL (0.6-4.6); Lymphocytes % 17.6 %; Mean Corpuscular HGB Conc 32.4 g/dL (31.6-35.5); Mean Corpuscular Hemoglobin 29.6 pg (28.0-33.3); Mean Corpuscular Volume 91.4 fL (83.0-100.0); Mean Platelet Volume 10.1 fL (9.4-12.4); Monocytes # 1.3 K/mcL (0.0-1.3); Monocytes % 10.2 %; Neutrophils # 9.3 K/mcL (1.6-8.9); Platelet Count 250 K/mcL (140-400); Red Blood Count 3.85 M/mcL (4.19-5.50); Red Cell Distribution Width 13.3 % (11.5-14.5); Segmented Neutrophils % 71.5 %
[2021-08-16 06:30] LABS: BUN/Creatinine Ratio 19 (6-26); Blood Urea Nitrogen 26 mg/dL (8-23); Carbon Dioxide 17 mEq/L (23-29); Chloride 105 mEq/L (98-107); Glucose 119 mg/dL (70-105); Osmolality,Calculated 280 (280-300); Potassium 4.1 mEq/L (3.5-5.1); Sodium 132 mEq/L (136-145); eGFR For African Americans > 60 (> 60); eGFR For Non-African Americans 50 (> 60)
[2021-08-16] MEDS ORDERED: Ondansetron 4 MG/2 ML VIAL IVP PRN (08:42)
[2021-08-16] MEDS: *HR* Ticagrelor 90 MG TABLET PO SCH ×2 (09:54→19:42)
[2021-08-16] MEDS: Aspirin 81 MG TAB.CHEW PO SCH (09:54)
[2021-08-16] MEDS: *HR* Enoxaparin 80 MG/0.8 ML SYRINGE SQ SCH (18:40)
[2021-08-17] MEDS: *HR* Enoxaparin 80 MG/0.8 ML SYRINGE SQ SCH ×2 (05:48→17:01)
[2021-08-17 07:30] LABS: Basophils % 0.2 %; Eosinophils % 0.3 %; Hematocrit 33.1 % (37.5-50.1); Hemoglobin 11.2 g/dL (12.9-16.9); Immature Granulocytes % 0.4 % (0-4); Lymphocytes # 3.3 K/mcL (0.6-4.6); Lymphocytes % 23.5 %; Mean Corpuscular HGB Conc 33.8 g/dL (31.6-35.5); Mean Corpuscular Volume 88.7 fL (83.0-100.0); Mean Platelet Volume 10.1 fL (9.4-12.4); Monocytes # 1.7 K/mcL (0.0-1.3); Monocytes % 11.8 %; Platelet Count 253 K/mcL (140-400); Red Blood Count 3.73 M/mcL (4.19-5.50); Red Cell Distribution Width 13.2 % (11.5-14.5); Segmented Neutrophils % 63.8 %; White Blood Count 14.1 K/mcL (4.3-11.1)
[2021-08-17] MEDS: *HR* Ticagrelor 90 MG TABLET PO SCH ×2 (07:36→21:43)
[2021-08-17] MEDS: Aspirin 81 MG TAB.CHEW PO SCH (07:36)
[2021-08-17 07:54] LABS: Calcium 8.1 mg/dL (8.6-10.3)
[2021-08-17] MEDS ORDERED: Perflutren Lipid Microsphere 1.3 ML in 0.9 % Sodium Chloride 8.7 ML IVP PRN (08:07)
[2021-08-17] MEDS ORDERED: Ondansetron 4 MG/2 ML VIAL IVP PRN (16:26)
[2021-08-17] MEDS ORDERED: *HR* Enoxaparin 80 MG/0.8 ML SYRINGE SQ SCH (18:00)
[2021-08-18] MEDS: *HR* Enoxaparin 80 MG/0.8 ML SYRINGE SQ SCH (06:15)
[2021-08-18] MEDS: *HR* Ticagrelor 90 MG TABLET PO SCH (08:15)
[2021-08-18] MEDS ORDERED: lisinopriL 5 MG TABLET PO SCH (09:00)
[2021-08-18] MEDS ORDERED: Aspirin 81 MG TAB.CHEW PO SCH (09:00)
[2021-08-18 10:49] VITALS: TEMP 98.3
[2021-08-18 11:07] VITALS: O2SAT 93
[2021-08-18 12:18] VITALS: BP 104/53
[2021-08-18 12:23] VITALS: PULSE 67
[2021-08-18] MEDS ORDERED: Acetaminophen 650 MG RECTAL SUPP RC ONE (12:32)
[2021-08-18] MEDS ORDERED: Acetaminophen 325 MG TABLET PO ONE ×2 (12:40→12:51)
== END 2021-08-18 13:20 | disposition home or self-care (01) | DRG 247 ==
LOC: EMEROOARM 17:38 → ICNU 18:03 → 2NNU 08-17 19:40
PROVIDERS: ADMIT Internal Medicine Cardiovascular Disease; ATTEND Internal Medicine Cardiovascular Disease